=== PATIENT | male | born 1970 | race Caucasian/White ===

== ENCOUNTER → 2024-10-22 11:08 | Outpatient (BNVA) | payer OTHER, SELFPAY | PROVIDERS: PCP Family Medicine; Visit Provider Family Medicine | DX: M54.50 Low back pain, unspecified (principal) | CPT/HCPCS: 81000 ==

== ENCOUNTER 2024-10-25 08:29 | Outpatient (CLI) | payer OTHER, SELFPAY ==
--- NOTE | 2024-10-25 08:36 | XRR_ITS ---
PROCEDURE INFORMATION: Exam: XR Chest Exam date and time: 10/25/2024 9:03 AM Age: 54 years old Clinical indication: Left-sided and other: Upper; Pain in left shoulder and left upper chest. Pain states in left shoulder blade and radiates to front of upper chest; Additional info: Chest pain TECHNIQUE: Imaging protocol: Radiologic exam of the chest. Views: 2 views. COMPARISON: No relevant prior studies available. FINDINGS: Lungs: Unremarkable. No consolidation. Pleural spaces: Unremarkable. No pleural effusion. No pneumothorax. Heart/Mediastinum: Unremarkable. No cardiomegaly. Bones/joints: Unremarkable. XR/XR chest 2V* [id number] IMPRESSION: No acute findings.
== END 2024-10-25 08:30 | disposition home or self-care (01) ==
LOC: RAD 08:31
PROVIDERS: PCP Family Medicine; Visit Provider Family Medicine
DX: R07.9 Chest pain, unspecified (principal); M25.512 Pain in left shoulder
CPT/HCPCS: 71046

== ENCOUNTER 2024-12-10 15:32 | Outpatient (CLI) | payer OTHER, SELFPAY ==
--- NOTE | 2024-12-10 15:42 | XRR_ITS ---
PROCEDURE INFORMATION: Exam: XR Lumbosacral Spine Exam date and time: 12/10/2024 3:50 PM Age: 54 years old Clinical indication: Low back pain; Few years intermittent lower back pain that runs down leg, recently worsening; Additional info: Lumbar radiculopathy TECHNIQUE: Imaging protocol: Radiologic exam of the lumbosacral spine. Views: 4 or 5 views. COMPARISON: No relevant prior studies available. FINDINGS: Bones/joints: No acute fracture. Vertebral body heights are maintained. Spinal alignment is preserved. Left lateral osteophytes at L1-L2. Anterior osteophytes at L2-L3 and L3-L4. Mild intervertebral disc space height loss at L5-S1 Soft tissues: Unremarkable. Organs: Cholecystectomy clips. XR/XR lumbar spine min 4V [id number] IMPRESSION: 1. No acute osseous findings. 2. Mild lumbar spondylosis.
== END 2024-12-10 15:33 | disposition home or self-care (01) ==
PROVIDERS: PCP Family Medicine; Visit Provider Family Medicine
DX: M54.50 Low back pain, unspecified (principal); M47.816 Spondylosis without myelopathy or radiculopathy, lumbar region
CPT/HCPCS: 72110

== ENCOUNTER → 2024-12-17 08:44 | Outpatient (BNVA) | payer OTHER, SELFPAY | PROVIDERS: PCP Family Medicine; Visit Provider Family Medicine | DX: Z00.00 Encounter for general adult medical examination without abnormal findings (principal); R35.0 Frequency of micturition; Z51.81 Encounter for therapeutic drug level monitoring; Z13.6 Encounter for screening for cardiovascular disorders | CPT/HCPCS: 80053; 80061; 84153; 85025 ==

== ENCOUNTER 2025-01-14 06:58 | Outpatient (CLI) | payer OTHER, SELFPAY ==
--- NOTE | 2025-01-14 | ECG_ITS ---
[facility] Test Date: 2025-01-14 Pat Name: Luis Mai Department: Room: Gender: Male Child Study Team Director: : 1970 Requested By: Alex Curran Order Number: [id number] Day MD: Dat Kirby M.D. Interpretive Statements LEXISCAN SESTAMIBI STRESS TEST Procedure: At the baseline, the blood pressure was 125/67 mmHg with a heart rate of 57 bpm. The electrocardiogram showed sinus bradycardia, normal axis with normal ST and T's. The Lexiscan was infused over a period of 20 seconds. A total of 0.4 mg of Lexiscan was infused. The stress phase was continued for a total of 5 minutes. Heart rate was at the end of stress phase was 80 bpm and a blood pressure of 134/55mmHg. The EKG at the peak infusion revealed normal sinus rhythm with no significant ST-T wave changes. Sestamibi was injected 20 seconds after the Lexiscan infusion. Blood pressure at the end of recovery phase was 127/57 mmHg with a heart rate of 76 bpm. Conclusion: 1. Normal EKG response to Lexiscan infusion 2. No Lexiscan induced chest pain or cardiac arrhythmia. 3. Normal blood pressure and heart rate response. 4. Sestamibi/sestamibi perfusion scan pending; see separate report. Electronically Signed On 01-16-2025 15:18:48 CDT by Dat Kirby M.D. [email or web address]
--- NOTE | 2025-01-14 07:10 | NMCV_ITS ---
NM contreras perf SPECT r/s* [id number] Luis Mai Age: 54 Gender: M : 1970 Exam Date: 01/14/2025 08:24 Ordering Phys: Alex Duffy MD Technologist: CHARLIE Riggins Exam Location: [facility] [place] Indications: cp STRESS TEST Please see separate stress test report in [facility] for full findings IMAGE PROTOCOL Rest/Stress 1 Lexiscan Day Radiopharmaceutical Dose (mCi) Administration Site Administered by Rest: Tc-99m 10.7 IV Lani Vera, VACUUM [employer]ER Sestamibi Stress:Tc-99m 32.7 IV Lani Gurrolagle, VACUUM SPINDLE SANDER Sestamibi Rest: 14-Jan-2025 60 Discovery 630 Stress: 14-Jan-2025 30 Discovery 630 0.4mg Lexiscan. Images obtained in supine and prone position. SPECT RESULTS Technical Quality: Good Raw Data Analysis: Normal Image Corrections: No attenuation or motion correction applied Summed Stress Score: 1 Summed Rest Score: 1 Summed Difference Score: 0 PERFUSION FINDINGS There appeared to be medium size area of persistently decreased tracer uptake noted in basal to distal inferior and lateral wall consistent with old myocardial infarction vs scaring, in the absence of wall motion abnormality could be an artifact. FUNCTIONAL RESULTS (calculated via Gated SPECT) Stress Image LV EF (%): 72 Stress EDV (mL):153 TID: 1.01 Stress ESV (mL):43 FUNCTIONAL FINDINGS: There is normal left ventricular systolic function. IMPRESSIONS This study is negative for ischemia. Geovanny Leon MD (Electronically Signed) Final Date: 14 January 2025 13:31 S
[2025-01-14 07:23] VITALS: BMI 26.2
[2025-01-14 09:17] VITALS: BP 127/57; PULSE 76
== END 2025-01-14 06:59 | disposition home or self-care (01) ==
LOC: CDL 07:03
PROVIDERS: PCP Family Medicine; Visit Provider Family Medicine
DX: R07.9 Chest pain, unspecified (principal); R93.1 Abnormal findings on diagnostic imaging of heart and coronary circulation
CPT/HCPCS: 36415; 78452; 93017; 96374; A9500; J2785

== ENCOUNTER → 2025-03-21 10:26 | Outpatient (BNVA) | payer OTHER, SELFPAY | PROVIDERS: PCP Family Medicine; Visit Provider Internal Medicine Cardiovascular Disease | DX: R07.9 Chest pain, unspecified (principal) | CPT/HCPCS: 93005 ==

== ENCOUNTER 2025-04-01 11:04 | Outpatient (CLI) | payer OTHER, SELFPAY ==
--- NOTE | 2025-04-01 10:00 | USCV_ITS ---
Luis Mai Age: 55 Gender: M : 1970 Exam Date: 04/01/2025 11:25 Ordering Phys: Manan Friend MD ([email or web address]) Technologist: MEGHANA Exam Location: [facility] [place] Indication: CP BP: 142 / 75 HR: 65 Rhythm: Sinus Technical Quality: Adequate MEASUREMENTS (Male / Female) Normal Values 2D ECHO LV Diastolic Diameter PLAX 6.2 cm 4.2 - 5.9 / 3.9 - 5.3 cm IVS Diastolic Thickness 0.9 cm 0.6 - 1.0 / 0.6 - 0.9 cm IVS Systolic Thickness 0.8 cm LVPW Diastolic Thickness 1.0 cm 0.6 - 1.0 / 0.6 - 0.9 cm LVPW Systolic Thickness 1.0 cm LVOT Diameter 2.0 cm LV Ejection Fraction 2D Teich 26.2 % LV Ejection Fraction MOD 4C 64.7 % LV Ejection Fraction MOD 2C 56.9 % LV Ejection Fraction 2C AL 58.3 % LA Diameter 4.3 cm RA Systolic Volume 4C AL 49.1 ml RA Systolic Volume 4C MOD 46.4 ml LA Sys Volume AL 45.2 cm cubed LA Sys Volume Index AL 20.1 cm cubed/m squared Aorta at Sinotubular Diameter 2.8 cm IVC Diameter 1.8 cm M-MODE LA Ao Ratio MM 1.3 AV Cusp Separation MM 1.9 cm DOPPLER AV Peak Velocity 113.0 cm/s LVOT Peak Velocity 91.0 cm/s AV Area Cont Eq vti 2.8 cm squared AV Area Cont Eq pk 2.7 cm squared MV Peak Velocity 76.0 cm/s MV Area PHT 3.7 cm squared Mitral E to A Ratio 1.1 TV Peak Velocity 170.5 cm/s TR Peak Velocity 207.0 cm/s TR Peak Gradient 17.1 mmHg TV Peak E Velocity 76.0 cm/s PV Peak Velocity 142.0 cm/s FINDINGS Left Ventricle Normal left ventricular size, systolic function and wall thickness with no regional wall motion abnormality. Left ventricular ejection fraction is 58%. Normal left ventricular diastolic function. Right Ventricle Normal right ventricular size and systolic function. Right Atrium Normal right atrial size. Left Atrium Normal left atrial size. IA Septum Normal appearance of the interatrial septum. Mitral Valve Normal mitral valve structure. No mitral valve stenosis or regurgitation. Aortic Valve Normal aortic valve structure. No aortic valve stenosis or regurgitation. Tricuspid Valve Normal tricuspid valve structure. Trace tricuspid valve regurgitation. Normal pulmonary pressure. Pulmonic Valve Normal pulmonic valve structure. No pulmonic valve stenosis or regurgitation. Pericardium No pericardial effusion. Aorta Normal diameter of the aortic root and ascending thoracic aorta. IVC Normal IVC diameter. CONCLUSIONS Normal left ventricular size, systolic function and wall thickness with ejection fraction of 58%. Normal right ventricular size and systolic function. No significant valvular abnormalities. Manan Friend MD, FACC (Electronically Signed) Final Date: 06 April 2025 17:08 S
== END 2025-04-01 11:05 | disposition home or self-care (01) ==
LOC: RAD 11:05
PROVIDERS: PCP Family Medicine; Visit Provider Internal Medicine Cardiovascular Disease
DX: R07.9 Chest pain, unspecified (principal)
CPT/HCPCS: 93306